=== PATIENT | male | born 1995 | race Two or more races ===

== ENCOUNTER 2023-05-14 16:15 | Emergency (ER) | payer OTHER ==
[~2023-05-14] VITALS: Ht 162.6 cm; Wt 63.5 kg
== END 2023-05-14 18:28 | disposition home or self-care (01) ==
LOC: ER 16:16
DX: S68.110A Complete traumatic metacarpophalangeal amputation of right index finger, initial encounter (principal); W26.0XXA Contact with knife, initial encounter; Y93.89 Activity, other specified; Y92.010 Kitchen of single-family (private) house as the place of occurrence of the external cause; Z88.6 Allergy status to analgesic agent